=== PATIENT | female | born 1995 | race Two or more races ===

== ENCOUNTER 2021-07-05 02:17 | Emergency (ER) | payer OTHER ==
[~2021-07-05] VITALS: Ht 165.1 cm; Wt 66.2 kg
[2021-07-05] MEDS ORDERED: PRENATAL 19 CH1 EAC1 (02:23)
[2021-07-05] MEDS ORDERED: ACETAMINOPHEN650 M2 PO (07:13)
[2021-07-05] MEDS ORDERED: DUI500 PO (07:57)
== END 2021-07-05 08:03 | disposition home or self-care (01) ==
LOC: ER 02:17
DX: O20.0 Threatened abortion (principal)

== ENCOUNTER 2021-07-06 13:43 | Inpatient (IN) | payer OTHER ==
[~2021-07-06] VITALS: Ht 165.1 cm; Wt 5.0 kg
[~2021-07-06 13:43] MED LIST: ACETAMINOPHEN650 M2 PO; DUI500 PO; PRENATAL 19 CH1 EAC1
== END 2021-07-07 10:12 | disposition home or self-care (01) | DRG 769 ==
LOC: ER 13:43 → CIR.AMB 16:03 → SURG 17:33 → O/R 17:33 → SURG 19:49
PROVIDERS: ADMIT Obstetrics & Gynecology; ATTEND Obstetrics & Gynecology
PROC: 10D17ZZ Extraction of Products of Conception, Retained, Via Natural or Artificial Opening (ICD-10-PCS; principal; 2021-07-06 18:15)
DX: O72.0 Third-stage hemorrhage (principal); O03.4 Incomplete spontaneous abortion without complication